=== PATIENT | female | born 1965 | race Caucasian/White ===

== ENCOUNTER 2017-03-25 10:28 | Emergency (ER) | payer OTHER ==
[~2017-03-25] VITALS: Ht 167.6 cm; Wt 66.5 kg
[2017-03-25 10:32] VITALS: Ht 167.6 cm; Wt 66.5 kg
[2017-03-25] MEDS ORDERED: ONDANSETRON (ODT) 4 MG TAB ODT STA (11:53)
[2017-03-25] MEDS ORDERED: ACETAMINOPHEN 325 MG TAB PO ONE (12:00)
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
[2017-03-25] MEDS ORDERED: HYDR-906 PO (13:11)
[2017-03-25] MEDS ORDERED: ONDA8TAB14 PO (13:11)
[2017-03-25] MEDS ORDERED: IBUP-1542 PO (13:11)
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
== END 2017-03-25 13:39 | disposition home or self-care (01) ==
LOC: FTE 10:28
DX: S13.9XXA Sprain of joints and ligaments of unspecified parts of neck, initial encounter (principal); R11.0 Nausea; F17.210 Nicotine dependence, cigarettes, uncomplicated; R51 Headache; V89.2XXA Person injured in unspecified motor-vehicle accident, traffic, initial encounter
CPT/HCPCS: 70450; 72125; Z7502; Z7610